=== PATIENT | male | born 1950 | race Caucasian/White ===

== ENCOUNTER 2017-08-14 09:18 | Emergency (ER) | payer OTHER ==
[~2017-08-14] VITALS: Ht 177.8 cm; Wt 95.3 kg
[~2017-08-14 09:18] MED LIST: ETODOLAC400 MG PO; TIZANIDINE HCL4 MG PO
[2017-08-14] MEDS ORDERED: CLONAZEPAM0.5 M1 (09:20)
== END 2017-08-14 13:53 | disposition home or self-care (01) ==
LOC: ER 09:18
DX: S91.322A Laceration with foreign body, left foot, initial encounter (principal); R58 Hemorrhage, not elsewhere classified; W31.2XXA Contact with powered woodworking and forming machines, initial encounter; Y93.89 Activity, other specified; Y92.018 Other place in single-family (private) house as the place of occurrence of the external cause